=== PATIENT | male | born 1970 | race Caucasian/White ===

== ENCOUNTER 2023-03-03 22:54 | Emergency (ER) | payer OTHER, SELFPAY ==
[2023-03-03 22:55] VITALS: BP 170/84; PULSE 65; RESP 16; TEMP 36.4; O2SAT 99; BMI 41.9
[2023-03-03 22:59] VITALS: BP 149/82; PULSE 69; RESP 18; O2SAT 99
--- NOTE | 2023-03-03 23:17 | CTR_ITS ---
PROCEDURE INFORMATION: Exam: CT Head Without Contrast Exam date and time: 03/03/2023 11:34 PM Age: 53 years old Clinical indication: Injury or trauma; Without residual foreign body; Right; Patient HX: Fall down five step flight of stairs with strike to frontal. Laceration to RT eyebrow. TECHNIQUE: Imaging protocol: Computed tomography of the head without contrast. Radiation optimization: All CT scans at this facility use at least one of these dose optimization techniques: automated exposure control; mA and/or kV adjustment per patient size (includes targeted exams where dose is matched to clinical indication); or iterative reconstruction. REPORTING DATA: Count of CT and Cardiac NM exams in prior 12 months: This patient has received 0 known CTs and 0 known cardiac nuclear medicine studies in the 12 months prior to the current study. COMPARISON: No relevant prior studies available. RADIATION DOSE METRICS: Total DLP (mGy-cm): 840.18 FINDINGS: Brain: No cerebral/cerebellar infarct. No brain parenchymal or extra-axial hemorrhage. Cerebral ventricles: No ventriculomegaly. Paranasal sinuses: Paranasal sinuses are clear. No air-fluid level. Mastoid air cells: Visualized mastoid air cells are clear. Bones/joints: No calvarial or skull base fracture. Soft tissues: Unremarkable. Other findings: The examination is limited by patient motion. CT/CT head wo con* [id number] IMPRESSION: 1. The examination is limited by patient motion. 2. No acute infarct or hemorrhage. 3. No calvarial or skull base fracture.
--- NOTE | 2023-03-03 23:17 | ED_ITS ---
HPI - Fall General: Chief Complaint: Fall Stated Complaint: fall- face lac Time Seen by Provider: 03/03/23 22:56 Source: patient and EMS Mode of arrival: EMS Limitations: no limitations History of Present Illness: 53-year-old male states he had fell down 4-5 steps stairs tonight he did hit his head he has a laceration to his right eyebrow. He denies any injury states he does have a headache he rates a 4 out of 10 he denies any pain elsewhere he is ambulatory after the event he denies any neck pain. Associated symptoms-after fall: Reports headache(s); Denies abdominal pain, chest pain or neck pain Review of Systems Const: Denies: fever(s), chills or body aches Eyes: Denies: blurry vision or eye discomfort ENMT: Denies: throat pain or dental pain Card: Denies: chest pain Resp: Denies: dyspnea GI: Denies: abdominal pain, nausea, vomiting or diarrhea Musc: Denies: neck pain or back pain Skin/Breast: Denies: rash Neuro: Reports: headache(s) FOR[facility] ED PFSH: Medical History (Updated 03/04/23 @ 00:19 by Nova Queen MD) No pertinent past medical history Social History (Updated 03/03/23 @ 23:18 by Nova Queen MD) Substance/Drug Use: never Physical Exam Const: COMMON NORMALS: no acute distress, patient oriented x3 and healthy appearing HENMT: COMMON NORMALS: normocephalic HEAD & SCALP: normocephalic OTHER: 3cm laceration over right eyebrow Eye: COMMON NORMALS: Equal, round and reactive pupils present and EOMs intact bilaterally PUPIL: Yes Equal, round and reactive pupils present Neck/C-Spine: COMMON NORMALS: full ROM and supple CERVICAL SPINE: No pain with cervical ROM and No Cervical spine tenderness Chest: COMMONS NORMALS: normal inspection of the chest and normal palpation of entire chest wall Resp: COMMON NORMALS: normal respiratory effort, No retractions, No use of accessory muscles and clear to auscultation bilaterally AUSCULTATION: clear to auscultation bilaterally Cardio: COMMON NORMALS: regular rate, regular rhythm and No murmurs present (Cardio) RATE: regular rate RHYTHM: regular rhythm GI: COMMON NORMALS: Normal to inspection, nondistended, normoactive bowel sounds present, Soft to palpation, non-tender and no masses PALPATION: Yes Soft to palpation Extremity: COMMON NORMALS: normal to inspection and full ROM Neuro: COMMON NORMALS: patient oriented x3, moves all extremities and no focal motor deficits Psych: COMMON NORMALS: mental status grossly normal, Normal thought process present and cooperative THOUGHT PROCESS: Normal thought process present Skin: COMMON NORMALS: no rashes or lesions noted and no wounds GENERAL SKIN EXAM: no rashes or lesions noted Procedures Laceration Laceration 1: Site: face Side (If applicable): right Size (cm): 3 Depth: simple, single layer Local Anesthetic: lidocaine 2% Amount of anesthesia used (mL): 8 Pre-repair: wound explored and irrigated extensively Skin layer closed with: nylon Size (cm): 5-0 Number of sutures: 5 Technique: simple, interrupted Course Vital Signs: Vital signs: Vital Signs Temperature 97.6 F 03/03/23 22:55 Pulse Rate 69 03/03/23 22:59 Respiratory Rate 18 03/03/23 22:59 Blood Pressure 153/94 03/04/23 00:12 Pulse Oximetry 97 03/04/23 00:12 Oxygen Delivery Me thod Room Air 03/04/23 00:12 MDM - Fall Medical Decision Making Patient presents here with a head laceration from a fall CT scan here is normal he has no other signs of injuries no neck pain I did suture his laceration he is to have suture removal in 7 days return if worsening family and him understand agree to plan. Lab Data Radiology Impressions Head CT 03/03/23 23:17 IMPRESSION: 1. The examination is limited by patient motion. 2. No acute infarct or hemorrhage. 3. No calvarial or skull base fracture. Discharge Plan Discharge Patient Disposition: Home Clinical Impression: Head injury, Laceration Discharge Orders: Discharge ED (Routine); Ordered 03/04/23 Ordered By: Nova Queen Discharge Diet: Advance as tolerated Discharge Activity: Resume usual activity Patient Instructions: Care For Your Stitches (ED), Laceration (ED) Activity Restrictions/Additional Instructions: suture removal in 7 days Coding Level of Care Code ED Field Assistant for [place] [place]
[2023-03-04] MEDS: lidocaine 1% INJ 10 mL (per mL) 20 ML INJECTION (00:04)
[2023-03-04 00:12] VITALS: BP 153/94; O2SAT 97
[2023-03-04 00:25] VITALS: BP 153/94; PULSE 72; RESP 18; O2SAT 98
--- NOTE | 2023-03-06 14:54 | DCPLANNER ---
mri manager was triggered to speak with patient due to no primary care physician - patient does not live in the area.
== END 2023-03-04 00:26 | disposition home or self-care (01) ==
PROVIDERS: Emergency Provider Emergency Medicine
DX: S01.111A Laceration without foreign body of right eyelid and periocular area, initial encounter (principal); S09.90XA Unspecified injury of head, initial encounter; W10.8XXA Fall (on) (from) other stairs and steps, initial encounter
CPT/HCPCS: 12013; 70450; 99284